=== PATIENT | female | born 1950 | race Caucasian/White ===

== ENCOUNTER 2019-04-23 14:24 | Inpatient (IN) | payer MEDICARE, OTHER ==
[~2019-04-23] VITALS: Ht 152.4 cm; Wt 76.8 kg
[2019-04-23] VITALS (7 sets, daily range): BP systolic 77–165; BP diastolic 44–93
[~2019-04-23 14:24] MED LIST: ACIPHEX 20 MG T20 M1; ASPIR 8181 MG PO; DYCYCLOMINE PO; FOSAMAX 70 MG T70 MG PO; NORCO 5-325 TA1 EACH PO; OMEPRAZOLE 20 M20 M1 PO; PAXIL10 MG PO; PRAVACHOL40 MG PO; PRAVASTATIN SOD40 MG PO; ROBAXIN 750 MG750 M1 PO; SYMBICORT160 MCG/4. INH; VENTOLIN HFA 1818 GM INH; WELLBUTRIN SR150 MG PO; [UNRECOGNIZED DRUG - OTHER]
[2019-04-23] MEDS ORDERED: PROTONIX40 M1 PO (14:34)
[2019-04-23] MEDS ORDERED: VALIUM5 MG PO (14:34)
[2019-04-23] MEDS ORDERED: CELEBREX 200 M200 M1 PO (14:35)
[2019-04-23] MEDS ORDERED: ZANTAC 150MG T150 MG PO (14:36)
[2019-04-23] MEDS ORDERED: BUSPIRONE HCL10 MG PO (14:36)
[2019-04-23] MEDS ORDERED: CHLORTHALIDONE25 MG PO (14:40)
[2019-04-23] MEDS ORDERED: NASAL DECONGEST30 M4 INH (14:41)
[2019-04-23 14:50] LABS: ABSOLUTE BASOPHILS 0.1 thou/uL (0.0-0.2); ABSOLUTE EOSINOPHILS 0.1 thou/uL (0.0-0.7); ABSOLUTE MONOCYTES 0.8 thou/uL (0.0-1.2); ABSOLUTE NEUTROPHILS 8.3 thou/uL (1.6-8.1); BASOPHILS 1.2 %; EOSINOPHILS 1.3 %; HEMATOCRIT 38.3 % (37.0-47.0); LYMPHOCYTES 17.2 %; MCH 29.2 pg (26.0-34.0); MCHC 33.9 g/dL (28.0-37.0); MCV 86.2 fL (80.0-100.0); MONOCYTES 7.2 %; NUCLEATED RBCS 0 /100WBC; PLATELET COUNT* 253 thou/uL (150-400); POLYS 73.1 %; RBC 4.44 mil/uL (4.20-5.00); RDW-CV 13.4 % (10.5-14.5); WBC 11.3 thou/uL (4.0-11.0)
[2019-04-23 15:02] LABS: ANION GAP 8 mmol/L (7-16); BUN 17 mg/dL (7-18); CALCIUM 9.8 mg/dL (8.5-10.1); CHLORIDE 88 mmol/L (98-107); CO2 28 mmol/L (21-32); CREATININE 0.8 mg/dL (0.6-1.3); GLUCOSE 105 mg/dL (70-99); POTASSIUM 3.7 mmol/L (3.5-5.1); SODIUM 124 mmol/L (136-145)
[2019-04-23 15:05] LABS: APTT 28.6 Seconds (25.0-31.3); PROTIME 10.4 Seconds (9.20-11.50)
[2019-04-23 15:15] LABS: ALBUMIN 4.1 g/dL (3.4-5.0); ALKALINE PHOSPHATASE 103 U/L (46-116); CK-MB MASS 3.4 ng/mL (<0.5-3.6); LIPASE 164 U/L (73-393); MAGNESIUM 1.7 mg/dL (1.8-2.4); NT-PRO BRAIN NAT PEPTIDE 21 pg/mL (<300); SGOT 23 U/L (15-37); SGPT 29 U/L (30-65); TOTAL BILIRUBIN 0.4 mg/dL (<0.1-1.0); TOTAL PROTEIN 7.5 g/dL (6.4-8.2); TROPONIN-I LEVEL <0.06 ng/mL (<0.06)
--- NOTE | 2019-04-23 18:17 | NUR ---
ADMIT TO RM 222 ORIENTED TO RM AND CALL LIGHT C/O CP MILD PRESSURE, GIVEN NITRO ASSMT AND HX TO BE DONE
[2019-04-24 00:30] VITALS: BP 113/59
[2019-04-24 04:00] VITALS: BP 96/43
[2019-04-24 04:38] LABS: ANION GAP 6 mmol/L (7-16); BUN 13 mg/dL (7-18); CALCIUM 8.9 mg/dL (8.5-10.1); CHLORIDE 92 mmol/L (98-107); CHOLESTEROL 170 mg/dL (<200); CO2 29 mmol/L (21-32); CREATININE 0.8 mg/dL (0.6-1.3); GLUCOSE 99 mg/dL (70-99); HDL CHOLESTEROL 76 mg/dL (>40); LDL CHOLESTEROL 88 mg/dL (<100); MAGNESIUM 1.8 mg/dL (1.8-2.4); POTASSIUM 4.1 mmol/L (3.5-5.1); SODIUM 127 mmol/L (136-145); TC:HDL 2.2 Ratio (Not establshd); TRIGLYCERIDE 31 mg/dL (<150); VLDL 6 mg/dL (<40)
[2019-04-24 04:41] LABS: SERUM ASSESSMENT CLEAR
--- NOTE | 2019-04-24 06:09 | NUR ---
PT SLEPT ON AND OFF THIS SHIFT. PT REPORTED CHEST PAIN, NITRO GIVEN WITH NO RELIEF, EKG OBTAINED. DR NOTIFIED, ORDERS RECIVED. GI COCKTAIL GIVEN WITH RELIEF. PT SLEPT FOR A FEW HOURS AND WOKE UP TO CRAMPING "ALL OVER". MEDS GIVEN PER E-DEC. IV PATENT. O2 WORN. DAUGHTER REMAINED AT BEDSIDE. WILL CONTINUE WITH PLAN OF CARE.
[2019-04-24 08:00] VITALS: BP 95/51
[2019-04-24 12:10] VITALS: BP 78/48
--- NOTE | 2019-04-24 13:15 | NUR ---
Pt is A&O. Resides at home with her . Active and independent. Pt has a neb, per previous note, Pt has a walker, but Pt did not mention it during this assessment. Hx of [facility] post CVA. No hx of SNF. Goal is home at dc, no needs anticipated. Following.
--- NOTE | 2019-04-24 16:24 | EKG ---
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1950 Requested By: Caden Roberts Order Number: [id number] MD: Raul Junior Measurements Intervals [place] Rate: 103 P: 44 VA: 139 QRS: 21 QRSD: 97 T: 43 QT: 331 QTc: 434 Interpretive Statements Sinus tachycardia Abnormal R-wave progression, early transition Compared to ECG 11/24/2016 16:02:07 Sinus rhythm no longer present Electronically Signed On 04-24-2019 16:24:36 CDT by Raul Junior [email or web address] <ELECTRONICALLY SIGNED> By: Raul Junior MD, [facility] 04/24/19 1624 1427 1427 Raul Junior MD, [facility] /EPI
--- NOTE | 2019-04-24 16:27 | EKG ---
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
--- NOTE | 2019-04-24 17:58 | NUR ---
ASSUMED PT CARE AT 0800, AOX4, UP AD SHANDA, O2 SAT 90'S 2L NC. TRACING SR ON TELE. LUNG SOUND CLEAR. LAST BM TODAY. FAMILY AT BEDSIDE. PT FOR CT CHEST, OXIMETRY STUDY. AROUND 1415, PT HAD EPISODE OF CHEST PAIN AND MUSCLE SPASM. MEDS GIVEN, EKG DONE. NOTIFIED. AM ASSESSMENT CHARTED. HOURLY ROUNDING, CALL LIGHT WITHIN REACH. WILL CONTINUE TO MONITOR
[2019-04-24 20:30] VITALS: BP 92/47
[2019-04-25] VITALS: BP 117/62
[2019-04-25 04:00] VITALS: BP 142/69
[2019-04-25 04:41] LABS: URINE BILIRUBIN NEGATIVE (Negative); URINE BLOOD TRACE (Negative); URINE CLARITY CLEAR; URINE COLOR YELLOW; URINE GLUCOSE-RANDOM NEGATIVE (Negative); URINE KETONES NEGATIVE (Negative); URINE NITRITE-REFLEX NEGATIVE (Negative); URINE PROTEIN NEGATIVE (Negative); URINE SPECIFIC GRAVITY <= 1.005 (1.005-1.030); URINE UROBILINOGEN 0.2 E.U./dl (0.2-1.0)
[2019-04-25 04:56] LABS: URINE LEUKOCYTES-REFLEX 3+ (Negative)
[2019-04-25 05:19] LABS: BACTERIA-REFLEX >30 Many /HPF (None Seen); CASTS None Seen /LPF (None Seen); CRYSTALS None Seen /LPF (None Seen); MUCUS 0-3 Light strn/LPF (None Seen); SQUAMOUS 0-3 Few /LPF (0-3); URINE RBC 3-10 Few /HPF (0-2); URINE WBC-REFLEX >25 Many /HPF (0-5); WBC CLUMPS Few (None Seen)
--- NOTE | 2019-04-25 07:38 | NUR ---
PATIENT SLEPT MOST OF THE NIGHT. IV FLUIDS WERE STARTED AT 100 ML/HR. FAMILY REMAINS AT BEDSIDE. WILL CONTINUE TO MONITOR.
[2019-04-25 08:00] VITALS: BP 97/51
[2019-04-25] MEDS ORDERED: CEFDINIR300 MG PO (10:07)
[2019-04-25] MEDS ORDERED: BENZONATATE100 MG PO (10:07)
[2019-04-25] MEDS ORDERED: ZANAFLEX4 MG PO (10:07)
[2019-04-25] MEDS ORDERED: DIFLUCAN100 MG PO (10:07)
[2019-04-25 11:21] VITALS: BP 97/51
[2019-04-25 11:27] LABS: CALCIUM 8.8 mg/dL (8.5-10.1); CREATININE 0.8 mg/dL (0.6-1.3); MAGNESIUM 1.9 mg/dL (1.8-2.4); POTASSIUM 3.3 mmol/L (3.5-5.1)
[2019-04-25 12:00] VITALS: BP 112/54
[2019-04-25 12:20] LABS: URINE POTASSIUM-RANDOM 7.1 mmol/L
--- NOTE | 2019-04-25 12:28 | NUR ---
ASSUMED PT CARE AT 0800, AOX4, UP AD SHANDA. O2 SAT 90'S RA. DENIES PAIN. PT FOR DISCHARGE TODAY. RANDOM URINE COLLECTED. HAD RT SATURATION AND REST. VSS, AM ASSESMENT CHARTED. MEDS GIVEN PER MAR. HOURLY ROUNDING. CALL LIGHT WITHIN REACH. WILL CONTINUE TO MONITOR.
--- NOTE | 2019-04-25 14:56 | NUR ---
DISCHARGED PLAN DISCUSSED WITH THE PT. RT SATURATION & REST DONE. OXIMETRY TEST LAST NIGHT REPORT PT O2 DID'NT DROP BELOW 90. IV, TELE REMOVED. MEDICATION SCRIPT/PACKET GIVEN. REMINDED TO FOLLOW UP WITH PCP, PULMONOLOGY. ALL BELONGINGS PACKED AND CHECKED. LEFT THE UNIT AMBULATORY AT 1450.
--- NOTE | 2019-04-25 16:38 | EKG ---
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1950 Requested By: Truman Limon Order Number: [id number] Babar MD: Jamil Alberts Measurements Intervals [place] Rate: 99 P: 49 ME: 135 QRS: 16 QRSD: 84 T: 57 QT: 331 QTc: 425 Interpretive Statements Sinus rhythm Abnormal R-wave progression, early transition Compared to ECG 04/23/2019 22:23:19 No significant changes Electronically Signed On 04-25-2019 16:38:08 CDT by Jamil Alberts [email or web address] <ELECTRONICALLY SIGNED> By: Jamil Alberts MD, [facility] 04/25/19 9411 1430 1430 Jamil Alberts MD, [facility] /EPI
--- NOTE | 2019-04-26 12:17 | CON ---
[address] [address] CONSULTATION Name: MAURO HAYES Room: [address] IN .R.#: [id number] Admission: 04/23/19 Attend Phys: Truman Limon MD Discharge: 04/25/19 Date of : 52 Report #: [id number] THIS REPORT FOR: //name// CC: Truman Negron DATE OF SERVICE: 04/24/2019 CARDIOLOGY CONSULTATION HISTORY OF PRESENT ILLNESS: The patient is a 68-year-old female who presented with chest discomfort. This came on yesterday evening without provocation and has waxed and waned since that time. She describes it as a squeezing left parasternal sensation with some response to nitrates, but it does not completely cause the pain to adelaide, but only diminution in discomfort. She has had some mild pleuritic quality to the discomfort. The pain may shoot to the arm and shoulder. She underwent prior catheterization in 2017, which revealed mild nonsignificant obstructive disease. Risk factors for coronary artery disease include prior cigarette smoking, hypercholesterolemia, hypertension and family history of premature coronary artery disease. PAST MEDICAL HISTORY: Remarkable for hyperlipidemia, colitis, COPD, diverticulitis and prior CVA. FAMILY HISTORY: There is a family history of heart disease in father and grandparents. REVIEW OF SYSTEMS: Remarkable for the following positives. RESPIRATORY: She notes cough with occasional sputum production. CARDIOVASCULAR: She has had chest pain in the past with prior catheterization with mild coronary artery disease. GENITOURINARY: She notes dysuria and some hematuria. ALLERGIC AND IMMUNOLOGIC: SHE NOTES SEASONAL AND MEDICATION ALLERGIES TO DOXYCYCLINE AND AZITHROMYCIN. PSYCHIATRIC: There is a history of depression and chronic anxiety. MUSCULOSKELETAL: She notes chronic arthritic complaints. SKIN: She has rashes. EYES: She wears glasses. ENT: She notes presbycusis. PHYSICAL EXAMINATION: GENERAL: Reveals an overweight, middle-aged [place] [address] CONSULTATION Name: MAURO HAYES Room: [address]#: [id number] Admission: 04/23/19 Attend Phys: Truman Limon MD Discharge: 04/25/19 Date of : 52 Report #: [id number] VITAL SIGNS: Blood pressure is 130/70, pulse rate is 78 and respirations are 18 per minute. NECK: Jugular venous pressure is normal. CHEST: Clear. CARDIAC: Reveals normal first and second heart sounds without murmurs or gallops. ABDOMEN: Moderately obese. EXTREMITIES: Without edema. LABORATORY STUDIES: EKGs revealed sinus rhythm and no ischemic changes. Troponin I is unremarkable. IMPRESSION: 1. Atypical chest pain. 2. Prior catheterization revealed mild coronary artery disease without significant obstruction. 3. Prior cigarette smoking. 4. Hypercholesterolemia. 5. Hypertension. 6. History of depression. RECOMMENDATIONS: At this point, given the prior catheterization with mild disease and atypical characterization of the discomfort, I would not recommend additional cardiovascular testing at this time. I would review her clinical data in the morning. Thank you for allowing us to see the patient in cardiovascular assessment. <ELECTRONICALLY SIGNED> By: Jamil Alberts MD, [facility] 04/26/19 1217 1648 2320Jamil Alberts MD, FAC /nt
--- NOTE | 2019-04-28 08:17 | CON ---
[facility] [address] [place] [address] CONSULTATION Name: MAURO HAYES Room: [address] IN M.R.#: [id number] Admission: 04/23/19 Attend Phys: Truman Limon MD Discharge: 04/25/19 Date of : 52 Report #: [id number] THIS REPORT FOR: //name// CC: Truman Negron DATE OF SERVICE: 04/24/2019 CONSULT REQUESTED BY: Truman Limon M.D. INDICATION FOR CONSULTATION: History of COPD. HISTORY OF PRESENT ILLNESS: A 68-year-old female has an extensive history of smoking, discontinued in the mid since she has been diagnosed with COPD and takes Symbicort and albuterol at home. The patient is not on supplemental oxygen and not on positive airway pressure therapy at home. At this time, the patient was admitted yesterday. Presentation was with chest pain, which she says started day before yesterday and is still present. She says this has been associated with respiration and coughing at times. Note that the patient has had ongoing issues with reflux and at times has had some mild epigastric discomfort as well. The patient does report a cough, but there is no sputum. She does have shortness of breath. She does not report any recent change in shortness of breath. She does not report upper respiratory complaints. There is no swelling of lower extremities. There is no calf pain. She does get occasional heartburn still. The patient does have considerable sleep complaints. She sleeps on her back. She has disturbed sleep at night. She has marked sleepiness during the day. Upon arrival, the patient is noted to have severe hyponatremia with a sodium dropping to 124. The patient does report significant fluid intake at home, but her BUN and creatinine are within the normal range, note that the BUN is not low. The patient did have 3 troponins negative. She had a CTA chest performed, which shows patchy posterior basilar infiltrates. There are no pulmonary emboli identified on the CT chest. REVIEW OF SYSTEMS: I asked her 14 questions for review of systems and the patient answered to the negative except as mentioned above. PAST MEDICAL HISTORY: COPD. She had a spirometry in the past. I do not have details available. Gastroesophageal reflux disease, on a proton pump inhibitor long-term, cardiac catheterization in [address] [facility], I do not have report available. Also, history of colitis, hyperlipidemia, hysterectomy, tonsillectomy, appendectomy, left forearm surgery, cataract surgery, clavicle surgery, diverticulitis, osteoarthritis, irritable bowel syndrome, hypertension, [place] [address] CONSULTATION Name: MINI HAYESCoral Urban Room: [address] IN ..#: [id number] Admission: 04/23/19 Attend Phys: Truman Limon MD Discharge: 04/25/19 Date of : 52 Report #: [id number] depression. The patient reports recent treatment for a urinary tract infection as well as genitourinary yeast infection. CURRENT MEDICATIONS: List in [facility] reviewed. [facility] ALLERGIES: The patient reports ALLERGY TO PENICILLIN, DOXYCYCLINE, AZITHROMYCIN, AND LEVAQUIN. With the other 3 medications, she says that she gets a rash. She says she has had ANAPHYLAXIS WITH PENICILLIN. The patient also reports that she has used Keflex on multiple occasions including recently without any adverse reaction. SOCIAL HISTORY: Extensive history of smoking. She says she smoked for perhaps around 40 years about a pack a day, discontinued in the mid . FAMILY HISTORY: There is no pertinent family history. PHYSICAL EXAMINATION: GENERAL: She is alert, awake and oriented. She does not appear to be in any distress. VITAL SIGNS: Blood pressure last charted at 78/48, although she is well perfused and comfortable, pulse of 55 and is saturating at 92% on 2 liters oxygen via nasal cannula, respiratory rate is at 17-18. She is afebrile with a temperature of 36.6. Body mass index elevated to 33. HEENT: Head is normocephalic and atraumatic. Pupils are equal and reactive. There is no throat erythema. Mucous membranes are moist. She has a narrow airway. NECK: Does not show raised JVP, asymmetry, mass or lymph nodes. CHEST: Symmetrical expansion on inspection and palpation. On auscultation, breath sounds are bilaterally equal, mildly decreased. No added sounds. HEART: Regular, no murmur. ABDOMEN: Soft and nontender. EXTREMITIES: Lower extremities show no edema. There is no calf tenderness. SKIN: Dry and intact. NEUROLOGICAL: Moves all extremities bilaterally equally and spontaneously with no focal deficit identified. LABORATORY DATA: The patient's CTA chest is reviewed, does not show pulmonary emboli. There are patchy infiltrative changes noted bilaterally posteriorly. There is a subcentimeter lung nodule identified. The patient's CBC as well as chemistries are in [employer]. These are reviewed. There is marked hyponatremia noted. Coagulation studies in [facility] reviewed. ASSESSMENT AND PLAN: 1. Chest pain. I doubt pulmonary etiology. Cardiology service is on the [address] [address] CONSULTATION Name: MAURO HAYES Room: [address]#: [id number] Admission: 04/23/19 Attend Phys: Truman Limon MD Discharge: 04/25/19 Date of : 52 Report #: [id number] and I would defer Evaluation for cardiac etiologies to them. The patient has had gastroesophageal reflux, which may have played a role. 2. Chronic obstructive pulmonary disease. She has p.r.n. albuterol as well as Symbicort at home. For now, she is just continuing the same until she can be seen in the office at which point pulmonary function test could be done to evaluate further. 3. Excessive daytime sleepiness. I agree with plans to do a nocturnal pulse oximetry tonight provided she is maintaining O2 saturation when she is awake and then discharging her on oxygen while asleep. Prior to her discharge, potentially an ambulatory pulse oximetry could also be done, but nocturnal pulse oximetry appears to be more important, but what appears to be much more important than either of these is that she should have an outpatient sleep study and then later on we set up with either a CPAP or BiPAP while asleep. 4. Pulmonary infiltrates. There are infiltrates noted posteriorly in the lung bruner bilaterally. There are several etiologies that can lead to this, pneumonia is one of them. She could also have an underlying interstitial lung disease, also mild fluid overload can give this picture; however, on my exam, she is not fluid overloaded. Therefore, I do suggest treating her with an antibiotic and then repeating a CT chest in around 2-3 months and see if these findings persist. I did consider the possibility that this could be an atypical infection and otherwise I would have included an antibiotic, which should covers the atypical, but the patient reports ALLERGY TO MACROLIDES, FLUOROQUINOLONES WELL TETRACYCLINE, which limits the choices. Even though that she says that she has had ANAPHYLAXIS TO PENICILLIN, she says that she has subsequently on multiple occasions received Keflex without any adverse reaction. This is the reason that I ordered as cefdinir. I do, however, still recommend that we should go ahead and do a urine for legionella antigen today. 5. Lung nodule, needs to be followed. I am recommending a CT chest without contrast as mentioned above. 6. Severe hyponatremia, etiology is not fully defined at this time, Nephrology opinion can be considered. 7. Gastroesophageal reflux disease, remains on a proton pump inhibitor. 8. Deep vein thrombosis prophylaxis. We will order Lovenox and the prophylactic dose. Thanks for this consultation. <ELECTRONICALLY SIGNED> By: Jay Ferrara MD 04/28/19 0817 1314 [id number] Patel MD /nt
== END 2019-04-25 13:30 | disposition home or self-care (01) | DRG 193 ==
LOC: M.ERS 14:24 → M.2W 15:26 → M.TBA-ER 15:26 → M.2W 17:36
PROVIDERS: Family Medicine; Internal Medicine; ADMIT Internal Medicine
DX: J18.9 Pneumonia, unspecified organism (principal); J96.91 Respiratory failure, unspecified with hypoxia; E87.1 Hypo-osmolality and hyponatremia; N39.0 Urinary tract infection, site not specified; J44.0 Chronic obstructive pulmonary disease with (acute) lower respiratory infection; E78.00 Pure hypercholesterolemia, unspecified; M19.90 Unspecified osteoarthritis, unspecified site; I10 Essential (primary) hypertension; F32.9 Major depressive disorder, single episode, unspecified; M47.9 Spondylosis, unspecified; K21.9 Gastro-esophageal reflux disease without esophagitis; E78.5 Hyperlipidemia, unspecified; K58.9 Irritable bowel syndrome, unspecified; R91.1 Solitary pulmonary nodule; R63.1 Polydipsia; B96.89 Other specified bacterial agents as the cause of diseases classified elsewhere; J84.10 Pulmonary fibrosis, unspecified; I25.10 Atherosclerotic heart disease of native coronary artery without angina pectoris; Z90.710 Acquired absence of both cervix and uterus; Z90.49 Acquired absence of other specified parts of digestive tract; Z98.42 Cataract extraction status, left eye; Z86.73 Personal history of transient ischemic attack (TIA), and cerebral infarction without residual deficits; Z88.1 Allergy status to other antibiotic agents; Z88.0 Allergy status to penicillin; Z88.8 Allergy status to other drugs, medicaments and biological substances; Z87.891 Personal history of nicotine dependence; Z79.82 Long term (current) use of aspirin; Z79.899 Other long term (current) drug therapy

== ENCOUNTER → 2021-08-02 | Outpatient (CLI) | payer MEDICARE, OTHER ==
[~2021-08-02] MED LIST changes: +BENZONATATE100 MG PO; +BUSPIRONE HCL10 MG PO; +CEFDINIR300 MG PO; +CELEBREX 200 M200 M1 PO; +CHLORTHALIDONE25 MG PO; +DIFLUCAN100 MG PO; +NASAL DECONGEST30 M4 INH; +PROTONIX40 M1 PO; +VALIUM5 MG PO; +ZANAFLEX4 MG PO; +ZANTAC 150MG T150 MG PO
== END ==
LOC: M.CT 08:53
PROVIDERS: ATTEND Family Medicine
DX: R10.2 Pelvic and perineal pain (principal); R10.13 Epigastric pain; I70.8 Atherosclerosis of other arteries; M47.816 Spondylosis without myelopathy or radiculopathy, lumbar region; M47.817 Spondylosis without myelopathy or radiculopathy, lumbosacral region; Z87.19 Personal history of other diseases of the digestive system; Z90.49 Acquired absence of other specified parts of digestive tract; Z90.710 Acquired absence of both cervix and uterus